=== PATIENT | male | born 1955 | race Caucasian/White ===

== ENCOUNTER 2021-08-29 05:57 | Day surgery (SDC) | payer MEDICARE ==
[2021-08-22 15:02] LABS: BASOPHILS % (AUTO) 0.5 % (0-1); EOSINOPHILS # (AUTO) 0.3 X10'3 (0-0.9); EOSINOPHILS % (AUTO) 4.8 % (0-6); LYMPHOCYTES # (AUTO) 1.6 X10'3 (1.1-4.8); LYMPHOCYTES % (AUTO) 28.8 % (21-51); MEAN CORPUSCULAR HEMOGLOBIN 28.1 PG (27.0-31.0); MEAN CORPUSCULAR HGB CONC 33.3 g/dL (33.0-36.5); MEAN CORPUSCULAR VOLUME 84.4 FL (78-98); MEAN PLATELET VOLUME 7.4 FL (7.4-10.4); MONOCYTES # (AUTO) 0.4 X10'3 (0-0.9); MONOCYTES % (AUTO) 7.1 % (2-12); NEUTROPHILS # (AUTO) 3.2 X10'3 (1.8-7.7); NEUTROPHILS % (AUTO) 58.8 % (42-75); PRE OP HEMATOCRIT 41.8 % (42.0-52.0); PRE OP HEMOGLOBIN 13.9 g/dL (14.0-17.9); PRE OP PLATELET COUNT 272 X10'3 (140-440); RED BLOOD COUNT 4.96 X10'6 (4.70-6.10)
[2021-08-22 15:16] LABS: ALBUMIN 3.9 G/DL (3.4-5.0); ALBUMIN/GLOBULIN RATIO 1.1 (1.1-1.5); ALKALINE PHOSPHATASE 71 IU/L (46-116); BLOOD UREA NITROGEN 15 MG/DL (7-18); CALCIUM 9.2 MG/DL (8.5-10.1); CHLORIDE 104 MMOL/L (99-107); CREATININE 0.94 MG/DL (0.60-1.10); PRE OP ALT 28 U/L (30-65); PRE OP ANION GAP 10 (8-16); PRE OP AST 19 U/L (10-37); PRE OP BILIRUB, TOTAL 0.3 MG/DL (0.0-1.0); PRE OP GLUCOSE 95 MG/DL (70-104); PRE OP POTASSIUM 4.1 MMOL/L (3.4-5.1); PRE OP SODIUM 140 MMOL/L (135-145); TOTAL CARBON DIOXIDE 25.7 MMOL/L (24-32); TOTAL PROTEIN 7.5 G/DL (6.4-8.2); eGFR 80 ML/MIN
[2021-08-22 15:22] LABS: PRE OP PROTIME 10.1 SECONDS (9.0-12.0)
[~2021-08-29] VITALS: Ht 175.3 cm; Wt 95.8 kg
[2021-08-29] VITALS (14 sets, daily range): BP systolic 112–157; BP diastolic 73–105
[~2021-08-29 05:57] MED LIST: ALPR0.255 PO; ASPI-1094 PO; CYCL-1 PO; FLO0.4C PO; LEVO100T9 PO; MELO-102 PO; OMEP20TA23 PO; ROSU10TA28 PO; VITAMIN C; VITAMIN D3; diazepam 5mg tablet PO ONE; famotidine 20mg tablet PO ONE; ringers solution, lacted 1,000 ML IV SCH
[2021-08-29] MEDS ORDERED: mupirocin 2% ointment 22GM ONE (06:39)
[2021-08-29] MEDS ORDERED: cocaine 4% topical solution 4ml bottle ONE (06:39)
[2021-08-29] MEDS ORDERED: LIDOcaine 1% W/epiNEPHrine 1:100,000 20ml vial ONE (06:39)
[2021-08-29] MEDS ORDERED: oxymetazoline 15 ML nasal spray NS ONE (06:40)
[2021-08-29] MEDS: oxymetazoline 15 ML nasal spray NS ONE ×2 (06:53→08:46)
--- NOTE | 2021-08-29 07:40 | NUR ---
EDUCATED PATIENT ON THE IMPORTANCE OF TRYING TO URINATE PRIOR TO SURGERY. PATIENT STATES I DON'T HAVE TO GO, IF I DO I WILL LET YOU KNOW.
--- NOTE | 2021-08-29 07:47 | NUR ---
PATIENT URINATED. HE DID NOT ASK FOR ASSISTANCE AND CARRIED HIS FLUIDS TO THE BATHROOM WITH HIM.
[2021-08-29] MEDS ORDERED: fentaNYL/PF 50MCG/1 ML 2ML syringe ONE (08:00)
[2021-08-29] MEDS ORDERED: propofol inj 20 ML IV ONE (08:01)
[2021-08-29] MEDS ORDERED: midazolam 1 mg/ML 2ml injection ONE (08:01)
[2021-08-29] MEDS ORDERED: ringers solution, lacted 1,000 ML IV SCH (08:05)
[2021-08-29] MEDS ORDERED: ondansetron/PF 4mg/2ml inj IV PRN (08:05)
[2021-08-29] MEDS ORDERED: proCHLORperazine 10 MG/2 ml inj IV PRN (08:05)
[2021-08-29] MEDS ORDERED: morphine 4 MG/ML inj SYRINge IV PRN (08:05)
[2021-08-29] MEDS ORDERED: labetalol 20mg/4ml (5mg/ml) syringe IV PRN (08:05)
[2021-08-29] MEDS ORDERED: meperidine/PF 25mg/ml syringe IV PRN ×3 (08:05)
[2021-08-29] MEDS ORDERED: morphine 2 MG/ML inj. syringe IV PRN (08:05)
[2021-08-29] MEDS ORDERED: sevoflurane 250ml liquid IH ONE (08:06)
[2021-08-29] MEDS ORDERED: ceFAZolin 1000mg inj ONE ×2 (08:26)
[2021-08-29] MEDS ORDERED: dexamethasone sod phosphate 4mg/ml inj. ONE (08:29)
[2021-08-29] MEDS ORDERED: ondansetron/PF 4mg/2ml inj ONE (09:45)
--- NOTE | 2021-08-29 09:48 | NUR ---
Received from OR via [facility] , accompanied by Anesthesiologist DR CANDELARIO and report given by Anesthesiolgist. PT PRESNTS WITH 20G LEFT HAND, NASAL PACKING, VSS. Addendum: 08/29/21 at 0959 by Chantel Partida RN, RN Amended: Links added.
[2021-08-29] MEDS ORDERED: salt irrigation nasal spray 45 ML SPRAY NS PRN (09:55)
[2021-08-29] MEDS ORDERED: HYDROcodone/acetaminophen 5mg/325mg tablet PO ONE (10:30)
--- NOTE | 2021-08-29 11:48 | NUR ---
ALL DISCHARGE CRITERIA HAS BEEN MET. VSS, PAIN AT A TOLERABLE LEVEL, VOIDING AND ABLE TO SAFELY AMBULATE AND TRANSFER SELF. IV TAKEN OUT WITHOUT COMPLICATIONS. ALL DISCHARGE INSTRUCTIONS COVERED WITH PATIENT AND ALL QUESTIONS ANSWERED, COPY GIVEN TO PATIENT. PATIENT TAKEN OUT VIA WHEELCHAIR TO PERSONAL VEHICLE WHERE FAMILY/FRIEND DROVE PATIENT HOME. PT GIVEN AFRIN,OCEAN SPRAY, 4X4'S AND NASAL RINSING WITH 60 CC SYRINGE. Addendum: 08/29/21 at 1202 by Chantel Resendez - SIOBHAN RN Amended: Links added.
== END 2021-08-29 11:48 | disposition home or self-care (01) ==
LOC: PAS 05:57
PROVIDERS: ATTEND Otolaryngology
DX: J34.2 Deviated nasal septum (principal); J34.3 Hypertrophy of nasal turbinates; J34.89 Other specified disorders of nose and nasal sinuses; E03.9 Hypothyroidism, unspecified; K21.9 Gastro-esophageal reflux disease without esophagitis; M19.90 Unspecified osteoarthritis, unspecified site; Z96.653 Presence of artificial knee joint, bilateral; Z98.890 Other specified postprocedural states; Z87.891 Personal history of nicotine dependence; Z86.73 Personal history of transient ischemic attack (TIA), and cerebral infarction without residual deficits; Z20.822 Contact with and (suspected) exposure to COVID-19; Z79.01 Long term (current) use of anticoagulants; Z79.899 Other long term (current) drug therapy
CPT/HCPCS: 30140; 30520; 31240; 36415; 80053; 82948; 85025; 85576; 85610; 85730; 87635; A6402; C9250; C9803; J0690; J1100; J2175; J2250; J2270; J2405; J2704; J3010; J3490; J7030; J7040; J7120; U0003; U0005; Z7506; Z7508; Z7512; 88300; 88304; 88311; A4618; A7000